=== PATIENT | male | born 1990 | race Caucasian/White ===

== ENCOUNTER 2019-01-19 14:04 | Emergency (ER) | payer MEDICAID ==
[~2019-01-19] VITALS: Wt 111.1 kg
== END 2019-01-19 15:14 | disposition home or self-care (01) ==
LOC: ED 14:04
DX: T15.02XA Foreign body in cornea, left eye, initial encounter (principal); Z23 Encounter for immunization; Z88.4 Allergy status to anesthetic agent; X58.XXXA Exposure to other specified factors, initial encounter; Y93.89 Activity, other specified; Y92.89 Other specified places as the place of occurrence of the external cause; Y99.8 Other external cause status

== ENCOUNTER 2021-10-02 13:37 | Emergency (ER) | payer OTHER ==
[~2021-10-02] VITALS: Ht 185.4 cm; Wt 113.4 kg
[2021-10-02] MEDS ORDERED: MEDROL DOSEPAK4 MG PO (16:00)
== END 2021-10-02 16:10 | disposition home or self-care (01) ==
LOC: ED 13:37
DX: M10.9 Gout, unspecified (principal)